=== PATIENT | male | born 1995 | race Two or more races ===

== ENCOUNTER 2024-10-29 00:48 | Emergency (ER) | payer OTHER ==
[~2024-10-29] VITALS: Ht 162.6 cm; Wt 68.2 kg
[2024-10-29 01:38] VITALS: BP 123/76; PULSE 84; RESP 18; TEMP 98.9; O2SAT 99
== END 2024-10-29 01:40 | disposition home or self-care (01) ==
LOC: ER 00:49
DX: S01.111A Laceration without foreign body of right eyelid and periocular area, initial encounter (principal); F12.90 Cannabis use, unspecified, uncomplicated; Z72.89 Other problems related to lifestyle; Z90.49 Acquired absence of other specified parts of digestive tract; W01.0XXA Fall on same level from slipping, tripping and stumbling without subsequent striking against object, initial encounter; Y93.01 Activity, walking, marching and hiking; Y92.89 Other specified places as the place of occurrence of the external cause; Y99.8 Other external cause status
CPT/HCPCS: 12013; 99284; A6449